=== PATIENT | male | born 1990 | race Caucasian/White ===

== ENCOUNTER 2017-09-11 18:13 | Observation (INO) | payer OTHER, MEDICAID ==
--- NOTE | 2017-09-11 19:08 | EDPHY ---
H & P Time Seen by Provider: 09/11/17 19:07 HPI/ROS: Chief complaint. Not eating and drinking HPI. 26-year-old male who has had history of developmental delay and kidney transplant on Prograf and CellCept presents with diarrhea for 3 and half weeks. 10 lb weight loss over 3 weeks. Decreased oral intake though is eating some such as some chicken nuggets at [employer] today. No vomiting. No fever. No chest discomfort or trouble breathing. No cough. He is on Bactrim for chronic urine tract infection suppression. Patient's was referred by his PCP to Gastroenterology who saw him today and recommended admission. ROS Constitutional. Weight loss Eyes. no problems with vision ENT. no sore throat, no nasal drainage Cardiovascular. no chest pain Respiratory. no shortness of breath, no cough Abdominal. Diarrhea . no problems urinating MS. no calf pain/swelling, no neck/back pain, no joint pain Skin. no rash Lymph. no swollen glands Neuro. no headache, no dizziness, no difficulty walking or with speech Past Medical/Surgical History: Kidney transplant, autism, developmental delay, cardiac issues Social History: Lives at home with mom Smoking Status: Never smoked Physical Exam: General Appearance: Alert small for stated age male walking around in the exam room playing with computer. Vital signs significant for blood pressure 82/62 Eyes: Pupils equal and round no pallor or injection. ENT, Mouth: Mucous membranes are moist. Respiratory: There are no retractions, lungs are clear to auscultation. Cardiovascular: Regular rate and rhythm. Gastrointestinal: Abdomen is soft and nontender, no masses, bowel sounds normal. Neurological: Awake and alert, sensory and motor exams grossly normal. Skin: Warm and dry, no rashes. Musculoskeletal: Neck is supple nontender. Extremities symmetrical, full range of motion. Psychiatric: Patient is oriented X 3, there is no agitation. Constitutional: Initial Vital Signs Temperature (C) 36.9 C 09/11/17 18:30 Heart Rate 100 09/11/17 18:30 Respiratory Rate 18 09/11/17 18:30 Blood Pressure 82/62 L 09/11/17 18:30 O2 Sat (%) 95 09/11/17 18:30 O2 Delivery Mode Room Air Allergies/Adverse Reactions: No Known Allergies Allergy (Verified 09/11/17 18:28) Home Medications: Medication Instructions Recorded amLODIPine BESYLATE [Norvasc (RX)] 10 mg PO DAILY 11/07/11 predniSONE 5 mg PO 11/09/12 Carvedilol 06/27/13 Cellcept 06/27/13 Lisinopril 06/27/13 Prograf 06/27/13 Amitriptyline HCl 09/11/17 Bactrim DS 09/11/17 Medical Decision Making Procedures: IV normal saline at 20 milliliters/kilogram ED Course/Re-evaluation: Re-evaluation 8:00 p.m.. Patient is stable. He is in fact he is eating soup. He has an IV running. I discussed laboratory evaluation with patient and his parents. We discussed treatment plan including recommendation for admission. They expressed understanding and I consulted and discussed case with Dr. Fierro, hospitalist, who agrees to the admission Differential Diagnosis: I considered complications of his transplant and the patient is immunosuppressed. He has apparently not been eating and drinking and has had weight loss and diarrhea. Considered bacterial causes as well as C difficile as etiologies for the diarrhea - Data Points Laboratory Results: Laboratory Results 09/11/17 19:39 09/11/17 19:39 09/11/17 09/11/17 09/11/17 19:39 19:39 19:39 WBC 9.27 10^3/uL 10^3/uL (3.80-9.50) RBC 5.91 10^6/uL 10^6/uL (4.40-6.38) Hgb 17.0 g/dL g/dL (13.7-17.5) Hct 50.5 % % (40.0-51.0) MCV 85.4 fL fL (81.5-99.8) MCH 28.8 pg pg (27.9-34.1) MCHC 33.7 g/dL g/dL (32.4-36.7) RDW 14.5 % % (11.5-15.2) Plt Count 249 10^3/uL 10^3/uL (150-400) MPV 10.2 fL fL (8.7-11.7) Neut % (Auto) 88.0 % H % (39.3-74.2) Lymph % (Auto) 6.5 % L % (15.0-45.0) [place] % (Auto) 5.1 % % (4.5-13.0) Eos % (Auto) 0.1 % L % (0.6-7.6) Baso % (Auto) 0.1 % L % (0.3-1.7) Nucleat RBC Rel Count 0.0 % % (0.0-0.2) Absolute Neuts (auto) 8.16 10^3/uL H 10^3/uL (1.70-6.50) Absolute Lymphs (auto) 0.60 10^3/uL L 10^3/uL (1.00-3.00) Absolute Monos (auto) 0.47 10^3/uL 10^3/uL (0.30-0.80) Absolute Eos (auto) 0.01 10^3/uL L 10^3/uL (0.03-0.40) Absolute Basos (auto) 0.01 10^3/uL L 10^3/uL (0.02-0.10) Absolute Nucleated RBC 0.00 10^3/uL 10^3/uL (0-0.01) Immature Gran % 0.2 % % (0.0-1.1) Immature Gran # 0.02 10^3/uL 10^3/uL (0.00-0.10) PT 18.4 SEC H SEC (12.0-15.0) INR 1.51 H (0.83-1.16) APTT 36.5 SEC SEC (23.0-38.0) Sodium 140 mEq/L mEq/L (135-145) Potassium 3.9 mEq/L mEq/L (3.5-5.2) Chloride 102 mEq/L mEq/L (97-110) Carbon Dioxide 22 mEq/l mEq/l (22-31) Anion Gap 16 mEq/L mEq/L (8-16) BUN 16 mg/dL mg/dL (7-23) Creatinine 0.9 mg/dL mg/dL (0.7-1.3) Estimated GFR > 60 Glucose 96 mg/dL mg/dL (70-100) Calcium 9.9 mg/dL mg/dL (8.5-10.4) Total Bilirubin 1.5 mg/dL H mg/dL (0.1-1.4) Conjugated Bilirubin 0.4 mg/dL mg/dL (0.0-0.5) Unconjugated Bilirubin 1.1 mg/dL mg/dL (0.0-1.1) AST 24 IU/L IU/L (17-59) ALT 35 IU/L IU/L (21-72) Alkaline Phosphatase 57 IU/L IU/L (38-126) Total Protein 7.2 g/dL g/dL (6.3-8.2) Albumin 4.9 g/dL g/dL (3.5-5.0) Medications Given: Discontinued Medications Sodium Chloride (Ns) 1,000 mls @ 0 mls/hr IV ONCE ONE; Per Protocol PRN Reason: Protocol Stop: 09/11/17 19:17 Last Admin: 09/11/17 19:46 Dose: 1,000 mls Departure - Departure Disposition: [facility] Inpatient Acute Clinical Impression: Diarrhea Qualifiers: Diarrhea type: unspecified type Qualified Code(s): R19.7 - Diarrhea, unspecified Condition: Fair Referrals: Oliver Reid DO [Primary Care Provider] - As per Instructions
[2017-09-11] MEDS ORDERED: NS 1,000 ML IV ONE ×2 (19:15→19:16)
[2017-09-11 19:43] LABS: PLATELET COUNT 249 10^3/uL (150-400)
[2017-09-11 19:55] LABS: INR 1.51 (0.83-1.16); PROTIME(PATIENT) 18.4 SEC (12.0-15.0)
[2017-09-11] MEDS ORDERED: ONDANSETRON 4 MG/2 ML VIAL IVP PRN (22:35)
[2017-09-11] MEDS ORDERED: ACETAMINOPHEN 325 MG TAB PO PRN (22:35)
[2017-09-11] MEDS: NS 1,000 ML IV SCH (23:45)
--- NOTE | 2017-09-12 00:37 | GHP ---
[f rep st] HISTORY AND PHYSICAL DATE OF ADMISSION: 09/11/2017 SOURCE: Patient has history of developmental delay. His adoptive mother is at bedside and provides history. EMR reviewed and case discussed with the accepting provider. CHIEF COMPLAINT: Diarrhea and decreased appetite with weight loss. HISTORY OF PRESENT ILLNESS: This is a pleasant 26-year-old gentleman with history of developmental d elay; autism; on chronic immunosuppressive therapy with Prograf, CellCept, and prednisone, status pos t kidney transplant, presents to the emergency department from GI office for 3-day history of decreas ed appetite, hypotension, diarrhea. Patient without any recent fevers, chills, complaints of abdomin al pain or distention. The patient has had nonbloody diarrhea for the past 3-1/2 weeks. The patient also has had significant change in appetite and early satiety. Mother reports the patient is typica lly quite a picky eater, but in the last 3-1/2 weeks the foods that he would normally eat, he would t clary 1 bite and not have any further intake. She also reports in the last several days that she has n oticed some significantly low blood pressures, as low as systolic in the 50s. Patient has been treat ed for hypertension and typically runs in the 100s to high 90s systolic. Patient without any noted l ightheadedness, dizziness, or presyncope. He does ambulate independently. He has had no nausea or v omiting. No bloody diarrhea. There has been no recent travel or change in diet. No other sick cont acts at home. Mother reports patient has had a 10-pound weight loss in the last 3 weeks. The prabhu luna's PCP referred him to GI of the [facility] and patient was referred to the emergency department for fu rther evaluation and admission. REVIEW OF SYSTEMS: CONSTITUTIONAL: Mother reports patient's measured temperatures typically run sli ghtly lower than normal at baseline. He has had no chills or sweats. SKIN: No new rashes or sores reported. Remainder of Review of Systems negative except as noted above. ALLERGIES: No known drug allergies. HOME MEDICATIONS: As per EMR, Prograf 0.5 mg p.o. b.i.d., CellCept 500 mg p.o. b.i.d., Coreg 12.5 mg p.o. b.i.d. with meals, melatonin 3 mg p.o. h.s., Bactrim half tab of 480 p.o. at h.s., amitriptylin e 30 mg p.o. h.s., prednisone 5 mg p.o. daily, lisinopril 2.5 mg p.o. daily. PAST MEDICAL HISTORY: Significant for developmental delay and autism, immunosuppressive therapy for history of kidney transplant, chronic antibiotic prophylaxis for UTI. PAST SURGICAL HISTORY: Significant for kidney transplant, bilateral feet and leg surgery, penile paige enoc, and resection of hepatoblastoma. FAMILY HISTORY: Unknown. Patient is adopted. SOCIAL HISTORY: Patient lives with his mother. He has no history of tobacco, drugs, or alcohol use. CODE STATUS: Full. PHYSICAL EXAMINATION: VITAL SIGNS: On arrival to the ER, blood pressure 82/62, heart rate 100, resp iratory rate 18, O2 saturation 95% on room air, temperature 36.9. Current vitals: Blood pressure 91 /67, heart rate 81, respiratory rate 16, O2 saturation 96% on room air with temperature 36.5. Blood pressure recorded did increase to 114/82 after several liters IV fluids. GENERAL: No acute distress . Pleasant, thin, underweight adult male, is lying quietly in bed, awake. HEAD: Normocephalic, atr aumatic. EYES: Extraocular muscular muscles grossly intact. Limited secondary to patient's ability to follow instructions. Pupils are equal, round, no scleral icterus or conjunctival injection. ENT : Mucous membranes are moist. No oropharyngeal erythema. Dentition in fair condition with repairs and metal caps. NECK: Supple. Trachea midline. CV: Regular rate and rhythm. No murmurs, rubs, o r gallops appreciated. RESPIRATORY: Lungs clear to auscultation bilaterally. Decreased inspiratory effort. Patient with 1 episode of a cough, nonproductive. No rhinorrhea. ABDOMEN: Positive bowel sounds. Soft, nontender to palpation. No rebound, guarding, or masses appreciated. : No suprap ubic tenderness to palpation. No Viveros in place. EXTREMITIES: Thin extremities with eversion of th e ankles. Patient does have a cyst just inferior to the right lateral ankle. He is able to move ext remities while lying in bed. Overall strength is 4/5 diffusely. NEURO: Grossly nonfocal. No facia l drooping. Limited secondary to patient's ability to follow instructions. PSYCH: Patient is not a gitated. Cognitive delay is noted. LABORATORY STUDIES: WBC 9.27, H and H is 17.0/50.5, MCV of 85.4, neutrophil percent is 88% without a ny bandemia. PT is 18.4, INR 1.51, PTT is 36.5. Sodium is 140, potassium 3.9, chloride 102, CO2 is 22, anion gap 16, BUN 16, creatinine 0.9, GFR greater than 60, glucose 96, calcium 9.9, total bilirub in 1.5, ALT is 35, AST is 24, alk phos 57, total protein 7.2, albumin is 4.9. ASSESSMENT AND PLAN: Pleasant 26-year-old gentleman with history of cognitive delay on chronic immun osuppressive therapy for history of kidney transplant, who presents with persistent diarrhea and decr eased appetite. 1. Failure to thrive with patient being underweight and apparent weight loss concerning for signific ant protein calorie malnutrition. Patient has declined oral intake for the past 2 weeks. He is note d to be hypotensive in addition and dehydrated with improvement after several liters of intravenous f luid. Dietary consult has been put into place. Will order oral supplementation with Ensure with pro tein at this time pending their recommendations. The patient has had ongoing diarrhea for the past 3 weeks. Today, he has not had any stool output per mother, but we will try to collect a sample and e valuate for any infectious source of the diarrhea. Again, patient is on chronic immunosuppressive th erapy, has a slight neutrophilia, but no bandemia. He does not meet systemic inflammatory response s yndrome or sepsis criteria. 2. Hypotension, improved slightly status post intravenous fluids. Will continue with supplementatio n overnight as we further evaluate patient's decline in oral intake. 3. Dehydration. Plan as above. 4. Diarrhea. Obtain stool samples as above. 5. Underweight with a body mass index of 13.7. Plan as above. 6. Hyperbilirubinemia, minimally elevated, likely related to patient's dehydration. Given patient's decline in appetite and oral intake, will plan for a limited right upper quadrant ultrasound. Patien t with a history of hepatoblastoma that was resected, but no history of cholecystectomy. We will fur ther evaluate. He has no evidence of a Lewis sign or guarding on exam at this time, but again ambrosio nt is on chronic immunosuppression. 7. History of kidney transplant. Continue patient's immunosuppression therapy at this time. 8. Fluid, electrolytes, and nutrition. Continue with intravenous fluids. Monitor electrolytes, rep lace if needed. Advance diet as tolerated and add supplementation. 9. Prophylaxis. Sequential compression devices, holding anticoagulation pending further evaluation of the right upper quadrant with imaging. 10. COR status is full. 11. Disposition. Patient admitted to inpatient status on the medical floor. Given severity of cheli ent's symptoms, I anticipate greater than 2 midnights' stay. /[id number]/MODL
[2017-09-12 04:56] LABS: PLATELET COUNT 169 10^3/uL (150-400)
[2017-09-12] MEDS ORDERED: NON-FORMULARY NEW DRUG (Carvedilol [Coreg] 12.5 MG) PO SCH (08:00)
[2017-09-12] MEDS ORDERED: CARVEDILOL 25 MG TAB PO SCH (08:00)
[2017-09-12] MEDS ORDERED: NON-FORMULARY NEW DRUG (Mycophenolate Mofetil [Cellcept] 500 MG) PO SCH (09:00)
[2017-09-12] MEDS: predniSONE 5 MG TAB PO SCH (09:44)
[2017-09-12] MEDS: LISINOPRIL 2.5 MG TAB PO SCH (09:46)
[2017-09-12] MEDS: MYCOPHENOLATE MOFETIL 250 MG CAP PO SCH ×2 (09:46→21:28)
[2017-09-12] MEDS: TACROLIMUS ANHYDROUS 0.5 MG CAP PO SCH ×2 (09:47→21:26)
[2017-09-12] MEDS: NS 1,000 ML IV SCH ×2 (09:58→20:07)
--- NOTE | 2017-09-12 09:59 | PDMN ---
Medical Necessity Medical necessity: GRG systemic condition- adult failure to thrive- min. po intake X 2 weeks,hypotension, dehydration, Diarrhea, pt on immunsuppressive therapy for kidney transplant- developmental delayed with autism > 2 midnights req for further monitoring and tx
--- NOTE | 2017-09-12 10:40 | ASMTCMCOM ---
CM Note CM Note Notes: 09/12/2017 Case Management Note Met w/pt and Mom Jovi [phone] (cell), (home) There are no case management needs identified for d/c. Pt lives with oJvi and Jovi is the primary care provider for pt with ADL's. Marandamckenna requested Pt eval for strengthening, help adjusting pt shoes or fitting for braces for better alignment to make ambulating easier for pt. Jovi also requested referrals to outpatient MD who specializes in the health needs for the developmentally delayed. Jovi did not feel that home care would be helpful. Case Management notified RN and OT of Marandaise requests. Case Management d/c poc: home with family with follow up as directed. Case Management available if d/c needs change. Date Signed: 09/12/2017 10:40 AM Electronically Signed By:Alexa Ramirez RN
--- NOTE | 2017-09-12 13:11 | HOSPPROG ---
Hospitalist Progress Note Assessment/Plan: 26y/o male with history of developmental delay and chronic UTI presenting with: #weakness and failure to thrive with reported diarrhea -stool pcr pending #possible uti -start ctx and await culture #suspected dehydration secondary to above (improved with IV hydration) -cont fluids #hypomag -replace #hypokalemia -replace #protein calorie malnutrition with hypoalbuminemia -dietary consult pending #H/o CKD with renal transplant on immunosuppressive (cellcept/prograf/pred) agents -check levels Disposition: Will continue inpatient care. Subjective: appetite has improved since being in the hospital. denies urinary complaints, but patient does not usually complain. No diarrhea since last friday according to mom Objective: Vital Signs Temp Pulse Resp BP Pulse Ox 36.4 C 78 15 97/63 L 97 09/12/17 11:26 09/12/17 11:26 09/12/17 11:26 09/12/17 11:26 09/12/17 11:26 Laboratory Results 09/12/17 04:25 09/12/17 04:25 09/11/17 09/12/17 09/13/17 05:59 05:59 05:59 Intake Total 1660 Balance 1660 PT 18.4 SEC (12.0-15.0) H 09/11/17 19:39 INR 1.51 (0.83-1.16) H 09/11/17 19:39 - Physical Exam Constitutional: no apparent distress, cachectic Cardiovascular: regular rate and rhythym, no murmur, rub, or gallop Respiratory: no respiratory distress, no rales or rhonchi, clear to auscultation , reduced air movement Gastrointestinal: normoactive bowel sounds, soft, non-tender abdomen, no palpable masses Genitourinary: no bladder fullness Skin: no rashes or abrasions, no fluctuance, no induration ICD10 Worksheet Patient Problems: Problems Problem Status Onset Diarrhea Acute
[2017-09-12] MEDS: cefTRIAXone 1 GM in STERILE WATER INJ 10 ML IV SCH (14:45)
[2017-09-12] MEDS ORDERED: PROTOCOL MAGNESIUM 1 DOSE IV PRN (16:06)
[2017-09-12] MEDS ORDERED: PROTOCOL POTASSIUM 1 DOSE MISC PRN (16:06)
[2017-09-12] MEDS ORDERED: SULFAMETHOX/TMP 400/80 MG 1 TAB PO SCH (21:00)
[2017-09-12] MEDS: MELATONIN 3 MG TAB PO SCH (21:25)
[2017-09-12] MEDS: AMITRIPTYLINE HCL 10 MG TAB PO SCH (21:26)
[2017-09-12] MEDS: CARVEDILOL 25 MG TAB PO SCH (21:26)
[2017-09-12] MEDS ORDERED: POTASSIUM CL 10 MEQ TAB PO ONE (23:33)
[2017-09-13 05:57] LABS: PLATELET COUNT 185 10^3/uL (150-400)
[2017-09-13] MEDS: CARVEDILOL 25 MG TAB PO SCH ×2 (09:40→21:39)
[2017-09-13] MEDS: predniSONE 5 MG TAB PO SCH (09:41)
[2017-09-13] MEDS ORDERED: MAGNESIUM SULF 2 GM/WATER 50 ML IV ONE (10:09)
[2017-09-13] MEDS ORDERED: POTASSIUM CL 10 MEQ TAB PO ONE ×2 (10:09→20:25)
[2017-09-13] MEDS: LISINOPRIL 2.5 MG TAB PO SCH (10:12)
[2017-09-13] MEDS: TACROLIMUS ANHYDROUS 0.5 MG CAP PO SCH ×2 (10:19→21:40)
[2017-09-13] MEDS: MYCOPHENOLATE MOFETIL 250 MG CAP PO SCH ×2 (10:19→21:39)
[2017-09-13] MEDS: cefTRIAXone 1 GM in STERILE WATER INJ 10 ML IV SCH (10:23)
[2017-09-13] MEDS ORDERED: PNEUMOCOCCAL 0.5ML VACCINE VIAL IM ONE ×2 (13:20→21:00)
[2017-09-13] MEDS ORDERED: FLU VACC QS 2017-18 (3YR+)/PF 0.5 ML SYR (FLUARIX QUAD) IM ONE ×2 (13:20→21:00)
[2017-09-13] MEDS ORDERED: NS 500 ML IV ONE (13:44)
[2017-09-13 16:23] VITALS: RESP 16
--- NOTE | 2017-09-13 16:42 | HOSPPROG ---
Hospitalist Progress Note Assessment/Plan: 26-year-old male with known developmental delay and a history of chronic UTI presented with weakness and diarrhea. He was noted to have electrolyte disorders which are being repleted along with volume deficiency. Today he has had 1 loose stool continues on IV fluids, and at this time his urine she is showing no significant growth. He is afebrile and otherwise doing well but his BP continues to be slightly low. He has been given NS bolus with improvement pressure. Patient is new to me today Plan: Continue IV fluids and await the results of his urine culture. Prior cultures have shown only skin candy and no significant grow since 2014. Note that he has a renal transplant on immunosuppressive therapy. -weakness and failure to thrive with reported diarrhea -stool pcr pending -possible uti -start ctx and await culture -suspected dehydration secondary to above (improved with IV hydration) -cont fluids -hypomag -replace -hypokalemia -replace -protein calorie malnutrition with hypoalbuminemia -dietary consult pending -H/o CKD with renal transplant on immunosuppressive (cellcept/prograf/pred) agents -check levels Disposition I expect 1 more day of fluid hydration and electrolyte repletion to be necessary. Likely discharge tomorrow Time: 40 min with the patient and answering all questions of the father Rubin. Subjective: No complaints patient wants to go home but has been convinced to stay with an interaction with the father and myself Objective: Vital Signs Temp Pulse Resp BP Pulse Ox 36.5 C 76 16 102/80 98 09/13/17 15:50 09/13/17 15:50 09/13/17 15:50 09/13/17 15:50 09/13/17 15:50 Microbiology 09/12/17 12:51 Gastrointestinal Tract Panel (PCR) - Final Stool No Organism Detected Laboratory Results 09/13/17 04:30 09/13/17 04:30 09/12/17 09/13/17 09/14/17 05:59 05:59 05:59 Intake Total 1660 325 Output Total 425 Balance 1660 -100 PT 18.4 SEC (12.0-15.0) H 09/11/17 19:39 INR 1.51 (0.83-1.16) H 09/11/17 19:39 - Time Spent With Patient Time Spent with Patient: greater than 35 minutes Time Spent with Patient: Greater than 35 minutes spent on this patients care, greater than 50% of time spent counseling, educating, and coordinating care regarding the above mentioned plan. - Pending Discharge Pending Discharge Within 24 Hours: Yes Pending Discharge Date: 09/14/17 Pending Discharge Time: 11:00 - Physical Exam Constitutional: no apparent distress, other (Characteristics of developmental delay and autism) Eyes: PERRL Ears, Nose, Mouth, Throat: moist mucous membranes Cardiovascular: regular rate and rhythym, no murmur, rub, or gallop Respiratory: no respiratory distress, no rales or rhonchi Gastrointestinal: normoactive bowel sounds, soft, non-tender abdomen, no palpable masses Genitourinary: no bladder fullness Skin: warm Musculoskeletal: full muscle strength ICD10 Worksheet Patient Problems: Problems Problem Status Onset Diarrhea Acute
[2017-09-13] MEDS: AMITRIPTYLINE HCL 10 MG TAB PO SCH (21:39)
[2017-09-13] MEDS: MELATONIN 3 MG TAB PO SCH (21:41)
[2017-09-14 04:17] VITALS: O2SAT 96
[2017-09-14 05:35] LABS: PLATELET COUNT 190 10^3/uL (150-400)
[2017-09-14] MEDS ORDERED: POTASSIUM CL 10 MEQ TAB PO ONE (07:37)
[2017-09-14] MEDS ORDERED: MAGNESIUM SULF 1 GM/DEXTROSE 100 ML IV ONE (07:38)
--- NOTE | 2017-09-14 07:41 | HOSPPROG ---
Hospitalist Progress Note Assessment/Plan: 26-year-old male with known developmental delay and a history of chronic UTI presented with weakness and diarrhea. He was noted to have electrolyte disorders which are being repleted along with volume deficiency. Today he has had 1 loose stool continues on IV fluids, and at this time his urine she is showing no significant growth. He is afebrile and otherwise doing well but his BP continues to be slightly low. He has been given NS bolus with improvement pressure. Patient is new to me today Plan: Continue IV fluids and await the results of his urine culture. Prior cultures have shown only skin candy and no significant grow since 2014. Note that he has a renal transplant on immunosuppressive therapy. -weakness and failure to thrive with reported diarrhea -stool pcr pending -possible uti -start ctx and await culture -suspected dehydration secondary to above (improved with IV hydration) -cont fluids -hypomag -replace -hypokalemia -replace -protein calorie malnutrition with hypoalbuminemia -dietary consult pending -H/o CKD with renal transplant on immunosuppressive (cellcept/prograf/pred) agents -check levels Disposition I expect 1 more day of fluid hydration and electrolyte repletion to be necessary. Likely discharge tomorrow Time: 40 min with the patient and answering all questions of the father Rubin. Objective: Vital Signs Temp Pulse Resp BP Pulse Ox 36.1 C 73 16 88/44 L 96 09/14/17 04:00 09/14/17 04:00 09/14/17 04:00 09/14/17 04:00 09/14/17 04:00 Laboratory Results 09/14/17 04:21 09/14/17 04:21 09/13/17 09/14/17 09/15/17 05:59 05:59 05:59 Intake Total 325 1120 Output Total 425 Balance -100 1120 PT 18.4 SEC (12.0-15.0) H 09/11/17 19:39 INR 1.51 (0.83-1.16) H 09/11/17 19:39 Microbiology 09/12/17 07:30 Urine,Clean Catch Urine Culture - Preliminary Staphylococcus Epidermidis Laboratory Tests 09/11/17 09/12/17 09/13/17 19:39 04:25 04:30 INR 1.51 H Chloride Carbon Dioxide Albumin 2.9 L D 3.1 L 09/14/17 04:21 INR Chloride 115 H Carbon Dioxide 18 L Albumin ICD10 Worksheet Patient Problems: Problems Problem Status Onset Diarrhea Acute
[2017-09-14] MEDS: MYCOPHENOLATE MOFETIL 250 MG CAP PO SCH (09:01)
[2017-09-14] MEDS: cefTRIAXone 1 GM in STERILE WATER INJ 10 ML IV SCH (09:01)
[2017-09-14] MEDS: CARVEDILOL 25 MG TAB PO SCH (09:01)
[2017-09-14] MEDS: TACROLIMUS ANHYDROUS 0.5 MG CAP PO SCH (09:02)
[2017-09-14] MEDS: predniSONE 5 MG TAB PO SCH (09:02)
[2017-09-14] MEDS: LISINOPRIL 2.5 MG TAB PO SCH (09:12)
[2017-09-14 11:27] VITALS: BP 107/88; PULSE 76; TEMP 97.9
--- NOTE | 2017-09-14 13:19 | GDS ---
[f rep st] DISCHARGE SUMMARY ACUTE DIAGNOSES: 1. Gastroenteritis of undetermined etiology with gastrointestinal panel negative, possible lactose i ntolerance. 2. Failure to thrive secondary to persistent diarrhea. 3. Hypotension secondary to mild dehydration due to diarrhea. 4. Hyperbilirubinemia present on admission secondary to dehydration. 5. History of renal transplant, on immunosuppressive therapy. 6. Chronic diagnosis of hypertension. CONSULTATIONS: None. PROCEDURES: None. HOSPITAL COURSE: This is a 26-year-old male, who was admitted after 3-1/2 weeks of non-bloody diarrh ea. On admission, he was noted to be hypotensive, tachycardic at 100, with a normal respiratory rate and afebrile. Sepsis was not present. He was treated with IV fluid hydration and slowly and persis tently improved. Initial laboratories showed normal white count and hemoglobin with mild electrolyte disorder of low potassium at one point and an elevated bilirubin at 1.5, which normalized. Albumin returned to 2.9. Pre-albumin was elevated at 25.3 with a TSH of 1.6. With fluid hydration, his stool output slowly decreased. The GI panel was negative by PCR analysis a nd the urine culture grew only Staph epididymis felt to be skin contamination. He did not have a fev er, white count or symptoms of dysuria during the hospitalization. The loose stool resolved and on the day of discharge, he was eating nicely and he had had 1-stool in the last 24-hours. He was ambulatory, eating and cooperative. The mother indicated that he ate a co nsiderable amount of cheese prior to the onset of this event and "he lives on cheese." Thus, it is p ossible he has developed a lactose intolerance and that is the etiology of his diarrhea. I have stre ssed to her that this is possible, to attempt to limit his cheese intake and substitute other foods. They will see GI of the [facility] in followup for further care and evaluation if needed. DISCHARGE MEDICATIONS: His stop medication will be: Bactrim double strength. This will be stopped. His usual medications will be resumed of: 1. Herbal supplementation. 2. Prograf 0.5 mg twice daily. 3. Prednisone 5 mg a day. 4. CellCept 500 mg twice daily. 5. Melatonin 3 mg at bedtime. 6. Lisinopril 2.5 mg daily. 7. Carvedilol 12.5 mg twice daily. 8. Amitriptyline 30 mg p.o., at bedtime. PLAN: The gentleman will return home with accompanied by his family. All questions have been answer ed and details of the problem have been explained. FOLLOWUP: Will be with Dr. Vale Whitman for his GI difficulties. TIME: This discharge required 45-minutes, greater than 50% to prison classification counselor and coordinate the gentleman's care. /[id number]/MODL
--- NOTE | 2017-09-14 17:21 | ASDISCHSUM ---
Discharge Information Plan Status:Home with No Needs Medically Cleared to Leave:09/13/2017 Discharge Date:09/14/2017 01:12 PM CM D/C Disposition:Home, Routine, Self-Care ADT D/C Disposition:Home, Routine, Self-Care Projected Discharge Date:09/14/2017 12:00 AM Transportation at D/C:Family Discharge Delay Reason: Follow-Up Date:09/14/2017 12:00 AM Discharge Slot: Final Diagnosis:Diarrhea, Hypotension, FTT Placement Information Patient Contact Information Contact Name:ROBIN Relationship:Mother Address:[address] [place] [address] Work Phone: Romaine:LIDYA Valdez Phone: [facility] [address]/Zip Code:[place] [address] Email: Financial Information Financial Class:Mix & Meet [facility] Primary Plan Number:[id number] Secondary Plan Desc:MEDICA[employer] [place] Secondary Plan Number:[id number] Assessment Information [facility] CM Progress Note CM Note CM Note Notes: 09/12/2017 Case Management Note Met w/pt and Mom Marandamckenna [phone] (cell), (home) There are no case management needs identified for d/c. Pt lives with Jovi and Jovi is the primary care provider for pt with ADL's. Jovi requested Pt eval for strengthening, help adjusting pt shoes or fitting for braces for better alignment to make ambulating easier for pt. Jovi also requested referrals to outpatient MD who specializes in the health needs for the developmentally delayed. Jovi did not feel that home care would be helpful. Case Management notified RN and OT of Marandaise requests. Case Management d/c poc: home with family with follow up as directed. Case Management available if d/c needs change. Date Signed: 09/12/2017 10:40 AM Electronically Signed By:Alexa Ramirez RN Case Management Discharge Plan Note Case Management Discharge Discharge Order Complete? Answers: Yes Followup Appointment 09/14/2017 12:00 AM Patient to Obtain Answers: via Family Medications Transportation Arranged Answers: Family/Friends Transport will Pick (Date 09/14/2017 12:00 AM & Time) Family Notified Answers: Yes Notes: Family to transport Discharge Comments Notes: Patient has been discharged home where his mother cares for him. No other needs. Date Signed: 09/14/2017 05:21 PM Electronically Signed By:Yessenia Connor LCSW Intervention Information
== END 2017-09-14 13:12 | disposition home or self-care (01) ==
LOC: INTOOBSV 20:03 → F3N 21:54 → F3E 09-12 16:56
PROVIDERS: ADMIT Internal Medicine; ATTEND Internal Medicine Pulmonary Disease
DX: K52.9 Noninfective gastroenteritis and colitis, unspecified (principal); R62.7 Adult failure to thrive; E46 Unspecified protein-calorie malnutrition; Z68.1 Body mass index [BMI] 19.9 or less, adult; I10 Essential (primary) hypertension; E86.0 Dehydration; E80.6 Other disorders of bilirubin metabolism; E87.6 Hypokalemia; E83.42 Hypomagnesemia; I95.9 Hypotension, unspecified; F84.0 Autistic disorder; E88.09 Other disorders of plasma-protein metabolism, not elsewhere classified; Q61.3 Polycystic kidney, unspecified; Z79.899 Other long term (current) drug therapy; Z79.2 Long term (current) use of antibiotics; Z79.52 Long term (current) use of systemic steroids; Z85.05 Personal history of malignant neoplasm of liver; Z94.0 Kidney transplant status; Z23 Encounter for immunization
CPT/HCPCS: 76705; 90471; 97161; 97530; 99285; G0378; 80197-90; 84134-90; G0008; G0009; J0696; J3475; J7512

== ENCOUNTER 2017-09-22 14:18 | Emergency (ER) | payer OTHER, MEDICAID ==
[2017-09-22 14:36] VITALS: RESP 18; TEMP 98; O2SAT 97
--- NOTE | 2017-09-22 15:09 | EDPHY ---
H & P Stated Complaint: told to come here from [facility] to be hydrated- d/c from [facility] 1wk ago Sun. Time Seen by Provider: 09/22/17 15:01 HPI/ROS: CHIEF COMPLAINT: Dehydration HISTORY OF PRESENT ILLNESS: Patient is a 26-year-old man with a history of developmental delay and autism who was recently admitted for failure to thrive with persistent diarrhea. He was seen by Gastroenterology and underwent a GI panel that was negative. They theorized that he was possibly lactose intolerant. This is a problem because mom states that he essentially lives on cheese and that is his main source of protein. She has been trying to cut down the cheese and provide him with alternatives this week. His diarrhea has decreased but he is still having 1 episode of non-bloody diarrhea per day. He has been afebrile. No abdominal pain. No nausea vomiting. He is able to drink the prefers juice or soda to water. He will not drink supplements. He is supposed to follow up with Dr. Whitman from GI. Today mom called the primary with concerns because the patient continues to lose weight and she feels that his urine is dark. She was concerned about dehydration. The patient also has a history of renal transplant on immunosuppressive therapy. REVIEW OF SYSTEMS: Constitutional: denies: chills, fever, recent illness, recent injury EENTM: denies: blurred vision, double vision, nose congestion Respiratory: denies: cough, shortness of breath Cardiac: denies: chest pain, irregular heart rate, lightheadedness, palpitations Gastrointestinal/Abdominal: See HPI denies: abdominal pain, nausea, vomiting, blood streaked stools Genitourinary: denies: dysuria, frequency, hematuria, pain Musculoskeletal: denies: joint pain, muscle pain Skin: denies: lesions, rash, jaundice, bruising Neurological: denies: headache, numbness, paresthesia, tingling, dizziness, weakness Hematologic/Lymphatic: denies: blood clots, easy bleeding, easy bruising Immunologic/allergic: denies: HIV/AIDS, transplant EXAM: GENERAL: Well-appearing, thin, pacing HEAD: Atraumatic, normocephalic. EYES: Pupils equal round and reactive to light, extraocular movements intact, sclera anicteric, conjunctiva are normal. ENT: TMs normal, nares patent, oropharynx clear without exudates. Moist mucous membranes. NECK: Normal range of motion, supple without lymphadenopathy or JVD. LUNGS: Breath sounds clear to auscultation bilaterally and equal. No wheezes rales or rhonchi. HEART: Regular rate and rhythm without murmurs, rubs or gallops. ABDOMEN: Soft, nontender, normoactive bowel sounds. No guarding, no rebound. No masses appreciated. BACK: No CVA tenderness, no spinal tenderness, step-offs or deformities EXTREMITIES: Normal range of motion, no pitting or edema. No clubbing or cyanosis. NEUROLOGICAL: Cranial nerves II through XII grossly intact. Normal speech, normal gait. 5/5 strength, normal movement in all extremities, normal sensation PSYCH: Delayed, answers simple questions SKIN: Warm, dry, normal turgor, no visible rashes or lesions. Source: Patient Exam Limitations: No limitations - Personal History Current Tetanus Diphtheria and Acellular Pertussis (TDAP): Yes - Medical/Surgical History Hx Asthma: No Hx Chronic Respiratory Disease: No Hx Diabetes: No Hx Cardiac Disease: Yes Hx Renal Disease: No Hx Cirrhosis: No Hx Alcoholism: No Hx HIV/AIDS: No Hx Splenectomy or Spleen Trauma: No Other PMH: autism/dev delays, kidney transplant, failure to thrive - Family History Significant Family History: No pertinent family hx - Social History Smoking Status: Never smoked Alcohol Use: None Constitutional: Initial Vital Signs Temperature (C) 36.6 C 09/22/17 14:34 Heart Rate 86 09/22/17 14:34 Respiratory Rate 18 09/22/17 14:34 Blood Pressure 91/67 L 09/22/17 14:34 O2 Sat (%) 97 09/22/17 14:34 O2 Delivery Mode Room Air Allergies/Adverse Reactions: No Known Allergies Allergy (Verified 09/11/17 18:28) Home Medications: Medication Instructions Recorded Carvedilol [Coreg] 12.5 mg PO BIDMEAL 06/27/13 Lisinopril [Zestril 2.5 mg (*)] 2.5 mg PO DAILY 06/27/13 Mycophenolate Mofetil [Cellcept] 500 mg PO BID 06/27/13 Tacrolimus Anhydrous [Prograf 0.5 0.5 mg PO BID 06/27/13 MG (*)] Amitriptyline HCl [Elavil 10 mg 30 mg PO HS 09/11/17 (*)] Herbals/Supplements -Info Only 1 ea PO DAILY 09/11/17 Melatonin [Melatonin 3 MG (*)] 3 mg PO HS 09/11/17 predniSONE 5 mg PO DAILY 09/11/17 Medical Decision Making ED Course/Re-evaluation: The patient can tolerate p.o. fluids and prefers juice over water. I do not find the patient dehydrated clinically. He has moist mucous membranes. I will encourage p.o. hydration. He is not nauseous or vomiting. No abdominal pain. His diarrhea is only once per day and nonbloody. This does not seem overly concerning. I think the primary problem is that he is not eating well. His mom states that he loves [employer] and she is planning to take him there after here but she states he only eats about half of the meal. This is obviously concerning however something that I am unlikely to remedy in an emergency department setting. This is best handled from the physician assistant primary care's office possibly with GI unless it comes to a point where he requires admission for malnutrition or dehydration which currently does not seem to be the case. The patient is running around the room and very active. Will check urine sample to evaluate for other possible causes of dark urine. 4:00 p.m. the patient's urine is not concentrated. It is not bloody and bilirubin is not elevated. We discussed this with mom. He has drink 3 cans of juice without difficulty. He is excited to go to [employer]. I feel that the primary problem is nutritional. Mom states that the dietitian in the hospital gave him a "magic cup" high-protein food that he did like more than most foods. She is asking for this. We will ask case management if they can assist. I also recommend they follow up with it dietitian through their primary Dr. I have paged her primary Dr King for consultation. 4:30 p.m. I discussed the case with Dr. Thibodeaux who agrees with referral to gis manager. The patient already has follow up with GI. He will make note and discuss with Dr. Bright. Differential Diagnosis: Partial list of the Differential diagnosis considered include but were not limited to; malnutrition, dehydration, anxiety, diarrhea and although unlikely based on the history and physical exam, I also considered infection, trauma, medication reaction. - Data Points Laboratory Results: 09/22/17 15:15 Urine Color YELLOW Urine Appearance HAZY Urine pH 6.0 (5.0-7.5) Ur Specific [place] >= 1.030 (1.002-1.030) Urine Protein TRACE H (NEGATIVE) Urine Ketones NEGATIVE (NEGATIVE) Urine Blood NEGATIVE (NEGATIVE) Urine Nitrate NEGATIVE (NEGATIVE) Urine Bilirubin NEGATIVE (NEGATIVE) Urine Urobilinogen 0.2 EU EU (0.2-1.0) Ur Leukocyte Esterase NEGATIVE (NEGATIVE) Urine RBC NONE SEEN /hpf /hpf (0-3) Urine WBC NONE SEEN /hpf /hpf (0-3) Ur Epithelial Cells 1+ /lpf /lpf (NONE-1+) Uric Acid Crystals 2+ /hpf H /hpf (NONE-1+) Urine Bacteria TRACE /hpf H /hpf (NONE SEEN) Hyaline Casts 3-5 /lpf H /lpf (0-1) Urine Mucus 2+ /lpf H /lpf (NONE-1+) Urine Glucose NEGATIVE (NEGATIVE) Departure - Departure Disposition: Home, Routine, Self-Care Clinical Impression: Poor nutrition Condition: Fair Instructions: Malnutrition (DC) Additional Instructions: The gis manager who works at [employer]'s phone number is [phone] Is in independent gis manager during this area as well Bailey Smith Referrals: Anahi Bright MD [Primary Care Provider] - 1-2 days without fail
[2017-09-22 16:37] VITALS: BP 122/62; PULSE 88
== END 2017-09-22 16:35 | disposition home or self-care (01) ==
LOC: CED 14:18
DX: E63.9 Nutritional deficiency, unspecified (principal)
CPT/HCPCS: 81003-PO; 81015-PO

== ENCOUNTER 2017-10-02 07:05 | Day surgery (SDC) | payer OTHER, MEDICAID ==
[2017-10-02] MEDS ORDERED: LIDOCAINE 1% 2 ML INJ ID PRN (08:23)
[2017-10-02] MEDS ORDERED: NS 1,000 ML IV ONE (08:23)
[2017-10-02] MEDS ORDERED: fentaNYL 100 MCG/2 ML INJ ONE (08:31)
[2017-10-02] MEDS ORDERED: MIDAZOLAM 2 MG/2 ML VIAL ONE (08:31)
[2017-10-02] MEDS ORDERED: DIAZEPAM 5 MG TAB ONE (08:48)
[2017-10-02 08:58] VITALS: PULSE 85
--- NOTE | 2017-10-02 09:05 | PDANEPAE ---
ANE History of Present Illness Diarrhea ANE Past Medical History - Cardiovascular History Hx Hypertension: Yes Hx Arrhythmias: No Hx Chest Pain: No Hx Coronary Artery / Peripheral Vascular Disease: No Hx CHF / Valvular Disease: No Hx Palpitations: No Cardiovascular History Comment: hospitalized 09/11-09/14/17 at [facility] for hypotension r/t dehydration - Pulmonary History Hx COPD: No Hx Asthma/Reactive Airway Disease: No Hx Recent Upper Respiratory Infection: No Hx Oxygen in Use at Home: No Hx Sleep Apnea: No Sleep Apnea Screening Result - Last Documented: Negative - Neurologic History Hx Cerebrovascular Accident: No Hx Seizures: No Hx Dementia: No - Endocrine History Hx Diabetes: No - Renal History Hx Renal Disorders: Yes Renal History Comment: s/p kidney transplant for polycystic kidney disease and intolerance to dialysis. chronic uti's. recent decrease urine output - Liver History Hx Hepatic Disorders: Yes Hepatic History Comment: liver ca at 2.5 yo - Neurological & Psychiatric Hx Hx Neurological and Psychiatric Disorders: Yes Neurological / Psychiatric History Comment: autism. developmental delay - Cancer History Hx Cancer: Yes Cancer History Comment: liver ca at 2.5 yo- surgery - Congenital Disorder History Hx Congenital Disorders: No - GI History Hx Gastrointestinal Disorders: Yes Gastrointestinal History Comment: recently hospitalized 09/11-09/14/17 for gastroentritis. diarrhea. weightloss. loss of appetite - Other Health History Other Health History: recently hospitalized for failure to thrive - Chronic Pain History Chronic Pain: No - Surgical History Prior Surgeries: kidney transplant 2011. liver resection at 2.5 yo for liver ca. bilateral foot surgery. penile surgery ANE Review of Systems Review of Systems: ANE Patient History - Allergies Allergies/Adverse Reactions: No Known Allergies Allergy (Verified 09/11/17 18:28) - Home Medications Home medications: home medication list seen and reviewed Home Medications: Carvedilol [Coreg] 12.5 mg PO BIDMEAL 06/27/13 [Last Taken 10/01/17 21:00] Lisinopril [Zestril 2.5 mg (*)] 2.5 mg PO DAILY 06/27/13 [Last Taken 10/01/17] Mycophenolate Mofetil [Cellcept] 500 mg PO BID 06/27/13 [Last Taken 10/01/17 21: 00] Tacrolimus Anhydrous [Prograf 0.5 MG (*)] 0.5 mg PO BID 11/10/13 [Last Taken 21:00] Amitriptyline HCl [Elavil 10 mg (*)] 30 mg PO HS 09/11/17 [Last Taken 10/01/17 21:00] Herbals/Supplements -Info Only 1 ea PO DAILY 09/11/17 [Last Taken 09/29/17] Melatonin [Melatonin 3 MG (*)] 3 mg PO HS 09/11/17 [Last Taken 10/01/17 21:00] predniSONE 5 mg PO DAILY 09/11/17 [Last Taken 10/01/17] Dronabinol 10/02/17 [Last Taken 10/01/17 21:30] Sulfamethox/Tmp 400/80 mg 10/02/17 [Last Taken 10/01/17 21:30] - NPO status NPO Since - Liquids (Date): 10/01/17 NPO Since - Liquids (Time): 22:00 NPO Since - Solids (Date): 10/01/17 NPO Since - Solids (Time): 21:00 - Smoking Hx Smoking Status: Never smoked - Family Anes Hx Family Hx Anesthesia Complications: adopted ANE Labs/Vital Signs - Vital Signs Heart Rate: 85 Respiratory Rate: 24 O2 Sat (%): 97 Height: 142.24 cm Weight: 32.3 kg ANE Physical Exam - Airway Neck exam: decreased ROM Mallampati Score: Class 3 - Pulmonary Pulmonary: no respiratory distress - Cardiovascular Cardiovascular: regular rate and rhythym - ASA Status ASA Status: III ANE Anesthesia Plan Anesthesia Plan: GA with mask (Possible mask induction if unable to start IV)
[2017-10-02] MEDS ORDERED: DIAZEPAM 5 MG TAB PO ONE (09:15)
[2017-10-02] MEDS ORDERED: PROPOFOL/EMULSION 500 MG/50 ML BOTTLE IV ONE (09:17)
--- NOTE | 2017-10-02 09:49 | PDGENHP ---
History & Physical Chief Complaint: weight loss, History of Present Illness: Autistic gentleman with weight loss and diarrhea Relevant Physical Exam: Lungs clear, cardiac exam normal S1, S2 Cardiorespiratory Assessment: Patient to have procedure with anesthesia assitance
--- NOTE | 2017-10-02 10:04 | GIREPORT ---
[facility] - Endoscopy Department Patient Name: Frantz Momin Procedure Date: 10/02/2017 8:23 AM Patient Type: Outpatient Attending MD/ ER Physician: Kash Tejeda MD Procedure: Upper GI endoscopy Indications: Diarrhea, Weight loss Providers: Kash Tejeda MD Medicines: See the Anesthesia note for documentation of the administered medicatio ns Complications: No immediate complications. Description of Procedure: After obtaining informed consent, the endoscope was passed under direct vision. Throughout the procedure, the patient's blood pressure, pulse, and oxygen saturations were monitored continuously. The Endoscope was intro duced through the mouth, and advanced to the second part of duodenum. [facility] er GI endoscopy was accomplished without difficulty. The patient tolerated th e procedure well. Findings: Diffuse candidiasis was found in the entire esophagus. Biopsies were ta ciera with a cold forceps for histology. A medium-sized hiatal hernia was present. Diffuse mildly erythematous mucosa without bleeding was found in the ga stric antrum. Biopsies were taken with a cold forceps for histology. The examined duodenum was normal. Biopsies for histology were taken wit h a cold forceps for evaluation of celiac disease. Estimated Blood Loss: Estimated blood loss: none. Post Op Diagnosis: - Monilial esophagitis. Biopsied. - Medium-sized hiatal hernia. - Erythematous mucosa in the antrum. Biopsied. - Normal examined duodenum. Biopsied. Recommendation: - Patient has a contact number available for emergencies. The signs and symptoms of potential delayed complications were discussed with the pat ient. Return to normal activities tomorrow. Written discharge instructions we re provided to the patient. - Resume previous diet. - Follow an antireflux regimen. - Continue present medications. - Diflucan (fluconazole) 100 mg PO daily for 2 weeks. Attending Participation: I personally performed the entire procedure. Kash Tejeda MD Kash Tejeda MD 10/02/2017 10:03:21 AM This report has been signed electronicallySttonia Tejeda MD Number of Addenda: 0 Note Initiated On: 10/02/2017 8:23 AM [email or web address]
--- NOTE | 2017-10-02 10:05 | GIREPORT ---
[facility] - Endoscopy Department Patient Name: Frantz Momin Procedure Date: 10/02/2017 8:27 AM Patient Type: Outpatient Attending / ER Physician: Ksah Tejeda MD Procedure: Flexible Sigmoidoscopy Indications: Diarrhea Providers: Kash Tejeda MD Medicines: See the Anesthesia note for documentation of the administered medicatio ns Complications: No immediate complications. Description of Procedure: After obtaining informed consent, the endoscope was passed under direct vision. Throughout the procedure, the patient's blood pressure, pulse, and oxygen saturations were monitored continuously. The Colonoscope with irrigation channel was introduced through the anus and advanced to the sigmoid colon. The flexible sigmoidoscopy was accomplished without difficulty. The patient tolerated the procedure well. The quality of th e bowel preparation was poor. Findings: The colon (entire examined portion) appeared normal. Biopsies for histo logy were taken with a cold forceps from the sigmoid colon for evaluation of microscopic colitis. Estimated Blood Loss: Estimated blood loss: none. Post Op Diagnosis: - Preparation of the colon was poor. - The entire examined colon is normal. Biopsied. Recommendation: - Await pathology results. - Thank you for allowing me to participate in the care of your patient. Attending Participation: I personally performed the entire procedure. Kash Tejeda MD Kash Tejeda MD 10/02/2017 10:04:56 AM This report has been signed electronicallyStevnatalie Tejeda MD Number of Addenda: 0 Note Initiated On: 10/02/2017 8:27 AM [email or web address]
[2017-10-02] MEDS ORDERED: fentaNYL 100 MCG/2 ML INJ IVP PRN (10:09)
[2017-10-02] MEDS ORDERED: NALOXONE HCL 0.4 MG/ML INJ IVP PRN (10:09)
[2017-10-02] MEDS ORDERED: PHENYLEPHRINE HCL 100 MCG/ML SYR IVP PRN (10:09)
--- NOTE | 2017-10-02 10:12 | POSTANESTH ---
Post Anesthetic Evaluation Cardiovascular Status: Other, See Comment (Unable to take BP pre-op for reference. First BP in procedure room was 90/60. BP down in PACU, ollie ordered. ) Respiratory Status: Similar to Pre-op Cond. Level of Consciousness/Mental Status: Other, See Comment (Severe autism) Pain Control: Adequate, Prn Tx Ordered Nausea/Vomiting Control: Adequate, Prn Tx Ordered Complications Possibly Related to Anesthesia: None Noted
[2017-10-02 11:07] VITALS: BP 107/73; RESP 16; TEMP 97.2; O2SAT 94
== END 2017-10-02 11:09 | disposition home or self-care (01) ==
LOC: FSGY 07:05
PROVIDERS: ATTEND Internal Medicine Gastroenterology
DX: R19.7 Diarrhea, unspecified (principal); R63.4 Abnormal weight loss; R63.0 Anorexia; F84.0 Autistic disorder; B37.81 Candidal esophagitis; K44.9 Diaphragmatic hernia without obstruction or gangrene; Z94.0 Kidney transplant status; Z85.05 Personal history of malignant neoplasm of liver
CPT/HCPCS: J2250; J2704; J3010

== ENCOUNTER → 2017-10-06 | Outpatient (CLI) | payer OTHER, MEDICAID | LOC: CIMAGING 16:03 | PROVIDERS: ATTEND Family Medicine | DX: E83.42 Hypomagnesemia (principal); R14.0 Abdominal distension (gaseous); R19.7 Diarrhea, unspecified; K59.00 Constipation, unspecified | CPT/HCPCS: 74018-PO ==

== ENCOUNTER → 2017-10-07 | Outpatient (CLI) | payer OTHER, MEDICAID ==
[~2017-10-07] MED LIST: IOPAMIDOL (ISOVUE-300) 100 ML BTL ONE
== END ==
LOC: FIMAGING 11:33
PROVIDERS: ATTEND Family Medicine
DX: Q61.3 Polycystic kidney, unspecified (principal); K76.9 Liver disease, unspecified; Z94.0 Kidney transplant status
CPT/HCPCS: Q9967